=== PATIENT | female | born 1955 | race Caucasian/White ===

== ENCOUNTER → 2017-07-14 11:04 | Outpatient (CLI) | payer MEDICARE, MEDICAID, SELFPAY ==
--- NOTE | 2017-07-14 11:09 | MRI_ITS ---
STUDY: MRI LUMBAR SPINE WITH AND WITHOUT CONTRAST REASON FOR EXAM: Female, 61 years old. Lumbar stenosis with neurogenic claudication. Low back pain and left leg pain. TECHNIQUE: Standardized fat and water weighted pulse sequences were obtained in the sagittal and axial planes. 10 ml of Gadavist contrast material was administered for the contrast portion of the examination. COMPARISON: 12/31/2005. FINDINGS: T9-T10: (Sagittal only). Normal endplates. Normal disc height, hydration and morphology. Normal central canal and bilateral intervertebral neural foramina. T10-T11: (Sagittal only). Normal endplates. Minimal loss of disc hydration but normal disc height and morphology. Normal central canal and bilateral intervertebral neural foramina. T11-T12: (Sagittal only). Normal endplates. Normal disc height, hydration and morphology. Normal central canal and bilateral intervertebral neural foramina. T12-L1: (Sagittal only). Normal endplates. Normal disc height, hydration and morphology. Normal central canal and bilateral intervertebral neural foramina. Normal lumbar lordosis. There is no substantial scoliosis. Normal conus medullaris that terminates at the T12-L1 disc level. L1-2: Anterior marginal spurs. Irregularities of the L1 inferior endplate is secondary to intervertebral osteochondrosis. Mild disc space height narrowing. Moderate loss of disc hydration. Modic type II degenerative vertebral marrow fatty changes underneath the L1 inferior endplate. Normal L2 superior endplate. Small posterior bulging disc. Normal central canal and bilateral lateral recesses. Mild asymmetric degenerative facet arthropathy. Normal bilateral intervertebral neural foramina. L2-3: Pronounced disc space height narrowing. Modic type II degenerative vertebral marrow fatty changes underneath the adjacent vertebral endplates. New severe central canal stenosis secondary to posterior marginal spurs and dorsal epidural lipomatosis. The AP canal diameter is 5 mm. Moderate bilateral degenerative facet hypertrophy. Moderate stenosis of the bilateral intervertebral neural foramina. L3-4: Normal endplates. Normal disc height but marked loss of disc hydration. Normal disc morphology. Normal central canal. Pronounced left degenerative facet hypertrophy. Moderately pronounced right degenerative facet hypertrophy. Mild stenosis of the left intervertebral neural foramen. Normal right intervertebral neural foramen. L4-5: Normal endplates. Mild disc space height narrowing with moderate loss of disc hydration. Postsurgical absence of the spinous process and lamina. Normal central canal and bilateral intervertebral neural foramina. Pronounced left degenerative facet hypertrophy. Moderate right degenerative facet arthropathy. Normal bilateral intervertebral neural foramina. L5-S1: Grade 2 anterolisthesis of L5 on S1 but there is ankylosis of the L5 and S1 vertebral bodies. There is also a metallic screw entering the L5 vertebral body and penetrating the S1 vertebral body used for anterior fusion. Normal central canal. Moderate stenosis of both intervertebral neural foramina. Normal visualized sacral ala. Normal visualized paraspinous soft tissue structures. No abnormal enhancing lesions intradurally and extradurally. MRI/Spine Lumbar W/WO Contrast IMPRESSION: 1. Pronounced L2-L3 disc space height narrowing with intervertebral osteochondrosis of the L1 inferior endplate, new pronounced central canal stenosis at L2-L3 disc level secondary to posterior marginal spurs and dorsal epidural lipomatosis and moderate stenosis of both intervertebral neural foramina. These are new findings when compared to 12/31/2005. 2. Pronounced left L3-L4 degenerative facet arthropathy and mild stenosis of the left intervertebral neural foramen. 3. Pronounced left L4-L5 degenerative facet arthropathy and moderate right L4-L5 degenerative facet arthropathy. 4. Grade 2 anterolisthesis of L5 on S1. There is ankylosis of the L5-S1 vertebral bodies and a metallic screw penetrating the L5-S1 vertebral bodies used for fusion. There are, however, moderate stenosis of both L5-S1 intervertebral neural foramina. They are unchanged. 5. No MRI evidence of lumbar extruded disc fragment. Electronically Signed: Marcos Abraham MD at 13:02 EST , Service support ,
== END ==
PROVIDERS: Family Provider Preventive Medicine Occupational Medicine; PCP Preventive Medicine Occupational Medicine; Visit Provider Nurse Practitioner Acute Care
DX: M48.062 Spinal stenosis, lumbar region with neurogenic claudication (principal)
CPT/HCPCS: 72158; A9585

== ENCOUNTER 2017-08-07 18:33 | Emergency (ER) | payer MEDICARE, MEDICAID, SELFPAY ==
[2017-08-07 18:33] VITALS: BP 138/61; PULSE 101; RESP 20; TEMP 36.4; O2SAT 92; BMI 40.5
--- NOTE | 2017-08-07 19:07 | EKG12_ITS ---
Test Reason : Blood Pressure : / mmHG Vent. Rate : 079 BPM Atrial Rate : 079 BPM P-R Int : 170 ms QRS Dur : 090 ms QT Int : 394 ms P-R-T Axes : 041 049 041 degrees QTc Int : 451 ms Normal sinus rhythm Normal ECG Confirmed by SHANNAN BENITEZ ([id number]), news editor XI SHER ([id number]) on 08/12/2017 1:41:29 PM Referred By: MARK Confirmed By:SHANNAN BENITEZ
[2017-08-07 19:10] LABS: Bedside Glucose 339 mg/dL (70-110)
--- NOTE | 2017-08-07 19:10 | RAD_ITS ---
STUDY: X-RAY CHEST REASON FOR EXAM: Female, 61 years old. Dizziness and nausea. TECHNIQUE: 2 views COMPARISON: Prior chest radiograph of August 24, 2015. FINDINGS: The lungs are clear and expanded. There is no demonstrated pleural abnormality. Normal size heart. Normal mediastinum and arianna. Normal visualized pulmonary arteries. There is atherosclerotic calcification of the aortic arch with tortuosity. There are diffuse degenerative changes of the visualized thoracic spine. Normal visualized ribs, clavicles, and shoulders. There is no demonstrated abnormality of the visualized soft tissue structures of the upper abdomen. RAD/Chest PA and Lateral IMPRESSION: No acute cardiopulmonary findings or changes. Electronically Signed: Deirdre English MD at 19:55 EST , Service support ,
[2017-08-07] MEDS: 0.9% Normal Saline 1,000 ML 1000 ML IV (19:26)
[2017-08-07 19:42] LABS: Bacteria 0 SEEN /hpf (None Seen); Mucous, Urine 0 SEEN /hpf (<or=2+)
[2017-08-07 20:04] LABS: Color, Urine Yellow (Yellow); Glucose, Dipstick 250 mg/dl (Normal); Ketone-Dipstick Negative (Negative); Leukocyte Esterase-Dipstick Negative /ul (Negative); Nitrite-Dipstick Negative (Negative); Occult Blood-Urine Negative /ul (Negative); Protein-Dipstick Negative (Negative); Urine Bilirubin Dipstick Negative (Negative); Urine Clarity Clear (Clear); Urine Urobilinogen Normal (Normal)
[2017-08-07 20:16] LABS: Absolute Lymphocyte Count 3.37 X10^3/ul (0.83-4.51); Anion Gap 8 (5-15); BUN 13 mg/dL (7-18); Basophil# 0.02 X10^3/uL; Basophil% 0.2 % (0-1); Calcium,Total 8.8 mg/dL (8.5-10.1); Chloride 101 mmol/L (98-107); Creatinine, Serum 0.68 mg/dL (0.55-1.02); EST Glomerular Filtration Rate 92 mL/min (>60); Eosinophil# 0.16 X10^3/uL; Est Glom Filt Rate - Afr Amer 112 mL/min (>60); Estimated Creatinine Clearance 74.07 ml/min; Glucose 312 mg/dL (74-106); Hematocrit 39.5 % (37-47); Lymphocyte # 3.37 X10^3/ul (4.0); Lymphocyte % 41.5 % (19-41); Mean Corp Hgb Conc 32.9 g/gl (32-36); Mean Corpuscular Hgb 32.3 pg (27.0-32.0); Mean Corpuscular Volume 98.3 fL (81-99); Mean Platelet Vol. 10.3 fl (6.2-12.0); Monocyte# 0.58 X10^3/uL; Monocyte% 7.1 % (0-10); Neutrophil # 3.98 X10^3/uL (2.7-7.7); Neutrophil % 49.1 % (47-70); Platelet Count 218 K/mm3 (150-450); Potassium 3.5 mmol/L (3.5-5.1); RBC Distribution Width CV 12.6 % (11.6-14.6); RBC Distribution Width SD 45.3 fl (35.1-43.9); Red Blood Count 4.02 M/mm3 (4.2-5.4); Sodium Level 138 mmol/L (136-145); White Blood Count 8.1 K/mm3 (4.4-11.0)
[2017-08-07 20:18] LABS: POSITIVE COUNT NO; POSITIVE DIFFERENTIAL NO; POSITIVE MORPHOLOGY NO
[2017-08-07 20:25] LABS: Red Blood Cells-Urine 0-5 SEEN /hpf (0-5); White Blood Cells 0-5 SEEN /hpf (0-5)
[2017-08-07 20:26] LABS: Squamous Epithelial Cells - UA 0-5 SEEN /hpf (5-10)
[2017-08-07 20:38] LABS: Hemoglobin A1c 7.7 % (4.2-6.3)
[2017-08-07 20:41] LABS: Bedside Glucose 212 mg/dL (70-110)
--- NOTE | 2017-08-07 20:47 | ED.VISSUMM ---
- ER Visit Summary Date of Service: 08/07/17 Chief Complaint: High blood sugar History of Present Illness: The patient is a [address] Maldonado. She reports that she had dietary indiscretions today and is measured her blood sugar and is high despite taking her normal doses of Metformin and 2 extra doses of glyburide. She states that she ate 2 donuts and carrot cake. She measured her blood sugar and it was over 400. She came to the emergency department for evaluation. Physical Examination: Vitals: Stable. Afebrile. General: Well-nourished and well-developed. Head: Normocephalic atraumatic. Neck: Supple, no lymphadenopathy. No JVD. Nontender. Cardiovascular: Regular rate and rhythm. No murmurs. Respiratory: No respiratory distress. Clear to auscultation bilaterally. Abdominal: Soft, nontender, nondistended, normal bowel sounds. No guarding, rebound, or peritoneal signs. Back: Nontender. Extremities: Nontender, no edema. Skin: Normal color, no rash. Neurologic: Alert and oriented ?3. Cranial nerves II through XII are intact. Normal strength and sensation. Psych: Normal affect. Test Results: CBC is unremarkable. Chem-7 is remarkable for a glucose of 312. Troponin is negative. Urinalysis is negative. Chest x-ray shows no acute disease. Troponin is negative. EKG shows no acute changes. Hemoglobin A1c is 7.7. Abnormal Lab Results 08/07/17 08/07/17 08/07/17 18:52 19:20 19:20 WBC 8.1 RBC 4.02 L Hgb 13.0 Hct 39.5 MCV 98.3 MCH 32.3 H MCHC 32.9 RDW 12.6 RDW Differential 45.3 H Plt Count 218 MPV 10.3 Immature Gran % (Auto) 0.100 Neut % (Auto) 49.1 Lymph % (Auto) 41.5 H [place] % (Auto) 7.1 Eos % (Auto) 2.0 Baso % (Auto) 0.2 Absolute Neuts (auto) 4.0 Absolute Lymphs (auto) 3.37 Total Counted Not Reportable Sodium 138 Potassium 3.5 Chloride 101 Carbon Dioxide 29.0 Anion Gap 8 BUN 13 Creatinine 0.68 Estim Creat Clear Calc 74.07 Est GFR (MDRD) Af Amer 112 Est GFR (MDRD) Non-Af 92 BUN/Creatinine Ratio 19.0 Glucose 312 H Hemoglobin A1c Calcium 8.8 Troponin I < 0.02 Urine Color Urine Clarity Urine pH Ur Specific [place] Urine Protein Urine Glucose (UA) Urine Ketones Urine Occult Blood Urine Nitrite Urine Bilirubin Urine Urobilinogen Ur Leukocyte Esterase Urine RBC Urine WBC Ur Squamous Epith Cells Urine Bacteria Urine Mucus POC Glucose 339 H 08/07/17 08/07/17 08/07/17 19:20 19:30 20:32 WBC RBC Hgb Hct MCV MCH MCHC RDW RDW Differential Plt Count MPV Immature Gran % (Auto) Neut % (Auto) Lymph % (Auto) [place] % (Auto) Eos % (Auto) Baso % (Auto) Absolute Neuts (auto) Absolute Lymphs (auto) Total Counted Sodium Potassium Chloride Carbon Dioxide Anion Gap BUN Creatinine Estim Creat Clear Calc Est GFR (MDRD) Af Amer Est GFR (MDRD) Non-Af BUN/Creatinine Ratio Glucose Hemoglobin A1c 7.7 H Calcium Troponin I Urine Color Yellow Urine Clarity Clear Urine pH 6.0 Ur Specific [place] 1.010 Urine Protein Negative Urine Glucose (UA) 250 H Urine Ketones Negative Urine Occult Blood Negative Urine Nitrite Negative Urine Bilirubin Negative Urine Urobilinogen Normal Ur Leukocyte Esterase Negative Urine RBC 0-5 SEEN Urine WBC 0-5 SEEN Ur Squamous Epith Cells 0-5 SEEN Urine Bacteria 0 SEEN Urine Mucus 0 SEEN POC Glucose 212 H Emergency Department Course and Treatment: Patient rested comfortably in the emergency department. Her blood glucose had decreased to 212 without any further medications. Treatment Plan: She will be discharged with instructions to follow-up with her primary care physician in 1-2 days if not improving. Disposition: To home in improved and stable condition. Impression: 1. Hyperglycemia. 2. Type 2 diabetes mellitus. This note was generated with [employer] software. It may contain incorrect words, spelling, and punctuation that were not noted in review of the chart prior to signing ED Disposition - Plan for ED Patient: Disposition: Home or Assisted Living Chief Complaint: Hyperglycemia Instructions: ED Hyperglycemia Diabetic Referrals: Terrence Lew DO [Primary Care Provider] - 1-2 Days if not improving
[2017-08-07 21:00] VITALS: BP 161/76; PULSE 79; RESP 20; O2SAT 97
== END 2017-08-07 21:01 | disposition home or self-care (01) ==
PROVIDERS: Emergency Provider Emergency Medicine; Family Provider Preventive Medicine Occupational Medicine; PCP Preventive Medicine Occupational Medicine
DX: E11.65 Type 2 diabetes mellitus with hyperglycemia (principal); R05 Cough; J44.9 Chronic obstructive pulmonary disease, unspecified; F17.200 Nicotine dependence, unspecified, uncomplicated; Z79.82 Long term (current) use of aspirin; Z79.84 Long term (current) use of oral hypoglycemic drugs; Z79.899 Other long term (current) drug therapy
CPT/HCPCS: 71046; 80048; 81001; 82962; 83036; 84484; 85025; 93005; 96360; 96361; 99284; J7030; A4216

== ENCOUNTER 2018-03-04 09:00 | Outpatient (RCR) | payer MEDICARE, MEDICAID, SELFPAY ==
--- NOTE | 2017-12-31 12:32 | HP.PTEVAL ---
Patient's Visit Information LUISA CARTER is a 62 year old F referred to Physical Therapy by Haydee Polanco, with a diagnosis of S/P LUMBAR FUSION. Date of Evaluation: 12/31/17 Physical Therapist: Clovis Kim, PT, - Visit Plan Frequency: 2x /Week Duration: 4 Weeks Plan: NO ACTIVE ROM X 3WEEKS,WEAN BRACE MAICO AND FWW,. GRADE PROGRESSION OF DLS,LE STRENGTHENING,POSTURAL EX'S ,FLEXABLITY LE - Subjective Subjective: This 62 y/o female presents to physical therapy with s/p lumbar fusion with microdecompression L2-4 fusion L2-4 on November done by [facility] Watts at [facility] .Patient d/c 5days later due to drainage.Patient with BLT ,fww and lumbar brace. 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 Prior to surgery patient radiculopathy legs with weaknes in legs. Patient had MRI prior to surgery see result for details. Currently c/o weakness in left leg burning/parathesaia leg. Bowel/bladder -. Symptoms affect sleeping. Patient uses walker community distances ,brace on except when resting. Coughing/sneezing -.Patient symptoms affect ADL'S and dailiy function and QOL.Patient seen Dr x-rays looked good recommended PT. SOCAIL: partener. HOME SITUTATION: 4 steps entrance with rail. VOCATION:disablity - Pain Bilateral Back Pain Intensity (Out of 10): 0 Pain Intensity Range: 10 Left Lower Extremity Pain Intensity (Out of 10): 4 Pain Intensity Range: 10 - Objective POSTURE: mild foward posture. GAIT: ambulate to PT with fww,amulated without reciprocal pattern slight decrease stance time. NEURO: c/o parathesia/tingling,light touch inact ,reflexes L3-4,L4-5,L5-S1 1/3. SYMMTRIES: align. SKIN: inscion well approximate. BALANCE: good -. FLEXABLITY: Hams min tight. MMT: quads/hams 4-/5,hip flexion 4-/5,3/5 ,ankle 4/5. LUMBAR ROM: flexion min loss ,extension mod loss,side glides min loss - Special Tests L/S Left Straight Leg Raise: Negative L/S Right Straight Leg Raise: Negative - Goals Goal 1:: Independant with HEP Goal Time Frame: 4-6 Weeks Goal 2:: Independant with posture for ADL'S Goal Time Frame: 4-6 Weeks Goal 3:: Ambulate with normal neri community distance with good balance no device. Goal Time Frame: 4-6 Weeks Goal 4:: Patient increase strength of left hip flexion 3+/5 ,quads/hams 4/5 to improve function with ADL'S Goal Time Frame: 4-6 Weeks Goal 5:: Patient return to prior level of function with min limitations Goal Time Frame: 4-6 Weeks Goal 6:: Patient improve owerty by 5 points to impoe QOL. Goal Time Frame: 4-6 Weeks - Rehabilitation Potential Physical Therapy Diagnosis: This 62 y/o presents with s/p lumbar fusion with microdecompression and fusion L2-4 December 03 with decrease strength left LEG ,impaired gait,endurance and function thus benifit from skilled PT Rehabilitation Potential: Good - Anticipated Interventions Patient/Client Instruction: Educate patient on: Condition, Plan of Care For the Purpose of:: To decrease pain, To increase ROM, To improve nutrient delivery to tissue, To improve muscle performance and motor function, To increase tolerance to activity/condition/position, To improve ability of physical actions for home/community/work/leisure, To improve gait and locomotor functions, To decrease soft tissue restriction, To increase flexibility/ROM, To improve endurance, To assume or resume ADL's, To improve ability to perform tasks related to life management Therapeutic Exercise to Include: Strength training, Body mechanics, Postural training, Flexibilty training, Dynamic Lumbar Stabilization For the Purpose of:: To increase ROM, To improve muscle performance and motor function, To improve ability to perform ADL's, To increase tolerance to activity/condition/position, To improve performance and independence with ADL's, To improve ability of physical actions for home/community/work/leisure, To improve health of tissue, To decrease soft tissue restriction, To increase flexibility/ROM, To assume or resume ADL's, To improve ability to perform tasks related to life management IF ES: Yes Cryotherapy (ice pack, ice massage): Yes Thermo therapy (hot pack): Yes For the Purpose of:: To decrease pain, To improve nutrient delivery to tissue, To increase oxygenation perfusion, To improve health of tissue, To decrease soft tissue restriction Thank you for the opportunity to evaluate your patient. For Medicare and Medicare HMO plans, please review the plan of care and approve it. It will need to be FAXED BACK to us at [phone] for Medicare purposes. Please let me know if there are questions or concerns regarding this plan of care. Physician Signature: Date:
--- NOTE | 2018-01-22 10:37 | HP.PTREVAL_ITS ---
Haydee Polanco, , It has been my pleasure to treat LUISA CARTER over the last 8 visits for S/ P LUMBAR FUSION. Please see the progress note below for an update on the physical therapy plan of care! Subjective: Doing better. Conts to have pain knee /ankle pain at night burning pain. During day up walking symptoms nt prevelant. Leg getting stronger ,but basement steps difficulty leading with left leg. Objective/Function: POSTURE: mild foward posture. GAIT: ambulates with cane community distances. but ambaulates with no cane reciprocal pattern. NEURO: c/ o parathesia left knee ,reflexes intact. STRENGTH : quads/hams 4/5,hip flexion left 3+/5,ankle 4/5. FLEXABLITY: hams min loss Plan Plan: cont with current POC interventions 2xweek for 4weeks Goals Goal 1:: Independant with HEP Goal Time Frame: 4-6 Weeks Goal Progress: Progressing Goal 2:: Independant with posture for ADL'S Goal Time Frame: 4-6 Weeks Goal Progress: Progressing Goal 3:: Ambulate with normal neri community distance with good balance no device. Goal Time Frame: 4-6 Weeks Goal Progress: Progressing Goal 4:: Patient increase strength of left hip flexion 3+/5 ,quads/hams 4/5 to improve function with ADL'S Goal Time Frame: 4-6 Weeks Goal Progress: Progressing Goal 5:: Patient return to prior level of function with min limitations Goal Time Frame: 4-6 Weeks Goal Progress: Progressing Goal 6:: Patient improve owerty by 5 points to impoe QOL. Goal Time Frame: 4-6 Weeks Goal Progress: Progressing Anticipated Interventions Patient/Client Instruction: Educate patient on: Condition, Plan of Care For the Purpose of:: To decrease pain, To increase ROM, To improve nutrient delivery to tissue, To improve muscle performance and motor function, To increase tolerance to activity/condition/position, To improve ability of physical actions for home/community/work/leisure, To improve gait and locomotor functions, To decrease soft tissue restriction, To increase flexibility/ROM, To improve endurance, To assume or resume ADL's, To improve ability to perform tasks related to life management Therapeutic Exercise to Include: Strength training, Body mechanics, Postural training, Flexibilty training, Dynamic Lumbar Stabilization For the Purpose of:: To increase ROM, To improve muscle performance and motor function, To improve ability to perform ADL's, To increase tolerance to activity /condition/position, To improve performance and independence with ADL's, To improve ability of physical actions for home/community/work/leisure, To improve health of tissue, To decrease soft tissue restriction, To increase flexibility/ ROM, To assume or resume ADL's, To improve ability to perform tasks related to life management IF ES: Yes Cryotherapy (ice pack, ice massage): Yes Thermo therapy (hot pack): Yes For the Purpose of:: To decrease pain, To improve nutrient delivery to tissue, To increase oxygenation perfusion, To improve health of tissue, To decrease soft tissue restriction Please do not hesitate to contact me at [phone] by phone or Fax: if you have questions or concerns regarding this new plan of care! Sincerely, Clovis Kim, PT,
--- NOTE | 2018-03-04 09:57 | HP.PTDCSUM_ITS ---
HP - PT D/C Summary It has been my pleasure to treat LUISA CARTER under orders from Haydee Polanco, , for the diagnosis of S/P LUMBAR FUSION for a total of 17 visit(s). Discharge Date: 03/04/18 Please see the following information for a summary of their discharge status. - Subjective Subjective: pleased with progress ..doing well. Patient hs nio restriction. Patient happy with progess no pain - Pain Bilateral Back Pain Intensity (Out of 10): 0 Left Lower Extremity Pain Intensity (Out of 10): 0 - Overall Improvement % Improvement: 90 - Objective Objective/Function: POSTURE: mild foward posture. GAIT: normal neri. NEURO : denies parathesia/tingling. MMT: quads/hams/hip flexion 4/5,ankle 4/5. LUMBAR ROM: flexion min loss,extension min loss ,extension min loss ,side glides min - Goals Goal 1:: Independant with HEP Goal Progress: Goal Met Goal 2:: Independant with posture for ADL'S Goal Progress: Goal Met Goal 3:: Ambulate with normal neri community distance with good balance no device. Goal Progress: Goal Met Goal 4:: Patient increase strength of left hip flexion 3+/5 ,quads/hams 4/5 to improve function with ADL'S Goal Progress: Goal Met Goal 5:: Patient return to prior level of function with min limitations Goal Progress: Progressing Goal 6:: Patient improve owerty by 5 points to impoe QOL. Goal Progress: Goal Met - Plan Plan: D/C to [facility] - D/C Information Discharge Comments: [facility] If there are questions or concerns regarding this patient's physical therapy, please feel free to call me at [phone]. Thank you for the referral of this patient. Sincerely, Clovis Kim, PT,
== END 2018-03-04 17:20 | disposition home or self-care (01) ==
LOC: PT 09:00
PROVIDERS: Family Provider Preventive Medicine Occupational Medicine; PCP Preventive Medicine Occupational Medicine; Visit Provider Nurse Practitioner Acute Care
DX: Z98.1 Arthrodesis status (principal)
CPT/HCPCS: 97110; 97162; 97530

== ENCOUNTER → 2018-04-23 19:45 | Outpatient (CLI) | payer MEDICARE, MEDICAID, SELFPAY ==
[2018-04-23 19:47] LABS: Bacteria 0 SEEN /hpf (None Seen); Mucous, Urine 0 SEEN /hpf (<or=2+); Red Blood Cells-Urine 0 SEEN /hpf (0-5)
[2018-04-23 20:26] LABS: Glucose, Dipstick Normal (Normal); Ketone-Dipstick Negative (Negative); Leukocyte Esterase-Dipstick 100 /ul (Negative); Nitrite-Dipstick Negative (Negative); Occult Blood-Urine Negative /ul (Negative); Protein-Dipstick 30 mg/dl (Negative); Urine Bilirubin Dipstick Negative (Negative); Urine Urobilinogen Normal (Normal)
[2018-04-23 20:40] LABS: Color, Urine Yellow (Yellow); Urine Clarity Clear (Clear)
[2018-04-23 20:41] LABS: Hyaline Cast 5-10 SEEN /lpf (0-5); Squamous Epithelial Cells - UA 0-5 SEEN /hpf (5-10); White Blood Cells 0-5 SEEN /hpf (0-5)
== END ==
PROVIDERS: Family Provider Preventive Medicine Occupational Medicine; PCP Preventive Medicine Occupational Medicine; Referring Provider Nurse Practitioner Adult Health; Visit Provider Nurse Practitioner Adult Health
DX: R82.998 Other abnormal findings in urine (principal)
CPT/HCPCS: 81001; 87086

== ENCOUNTER → 2018-04-27 11:16 | Outpatient (CLI) | payer MEDICARE, MEDICAID, SELFPAY ==
--- NOTE | 2018-04-27 11:20 | US_ITS ---
STUDY: RENAL ULTRASOUND - COMPLETE REASON FOR EXAM: Female, 62 years old. Hematuria, urinary retention TECHNIQUE: Ultrasound evaluation of the kidneys was performed with real-time and static zelaya-scale imaging. COMPARISON: None. FINDINGS: RIGHT KIDNEY: Normal location of the right kidney, which is normal in size. The right kidney measures 9.9 x 5.1 x 4.9 cm. There is a normal cortex of the right kidney. The renal cortex measures 1.4 cm. There is no right renal mass or cyst. There are no right renal calculi. There is no right hydronephrosis. DISTAL RIGHT URETER: There is non-visualization of the distal right ureter. There is no demonstrated right ureterovesical junction calculus. There is a visualized right ureteral jet. LEFT KIDNEY: Normal location of the left kidney, which is normal in size. The left kidney measures 10.8 x 5.2 x 5.4 cm. There is a normal cortex of the left kidney. The renal cortex measures 1.5 cm. There is no left renal mass or cyst. There are no left renal calculi. There is no left hydronephrosis. DISTAL LEFT URETER: There is non-visualization of the distal left ureter. There is no demonstrated left ureterovesical junction calculus. There is no demonstrated left ureteral jet. BLADDER: The distended urinary bladder has a volume of 212 ml. The empty urinary bladder has a volume of 0 ml. There is a normal wall thickness of the distended urinary bladder. There is no demonstrated mass within the urinary bladder. There are no demonstrated bladder calculi. US/Kidney and Bladder IMPRESSION: Normal ultrasound of the kidneys and urinary bladder. The left ureter jet is not visualized at the time of this study . Electronically Signed: Thea rBeen MD at 19:51 EST Tel , Service support ,
== END ==
PROVIDERS: Family Provider Preventive Medicine Occupational Medicine; PCP Preventive Medicine Occupational Medicine; Referring Provider Nurse Practitioner Adult Health; Visit Provider Nurse Practitioner Adult Health
DX: R33.9 Retention of urine, unspecified (principal); R31.29 Other microscopic hematuria
CPT/HCPCS: 76770

== ENCOUNTER → 2021-11-15 | Outpatient (CLI) | payer MEDICARE, MEDICAID, SELFPAY ==
[2021-11-15 12:24] LABS: Absolute Lymphocyte Count 1.84 X10^3/uL (0.83-4.51); Absolute Neutrophil Count 4.4 X10^3/uL (2.0-7.7); Basophil# 0.03 X10^3/uL; Basophil% 0.4 % (0-1); Eosinophil# 0.16 X10^3/uL; Eosinophils% 2.3 % (0-5); Hematocrit 39.8 % (37-47); Hemoglobin 13.4 g/dL (12.0-15.0); Lymphocyte # 1.84 X10^3/ul (0.83-4.51); Lymphocyte % 26.3 % (19-41); Mean Corp Hgb Conc 33.7 g/dL (32-36); Mean Corpuscular Hgb 35.3 pg (27.0-32.0); Mean Corpuscular Volume 104.7 fL (81-99); Mean Platelet Vol. 11.1 fl (6.2-12.0); Monocyte# 0.52 X10^3/uL; Monocyte% 7.4 % (0-10); NRBC Flagged by Analyzer 0 % (0-5); Neutrophil # 4.44 X10^3/uL (2.7-7.7); Neutrophil % 63.5 % (47-70); Platelet Count 104 K/mm3 (150-450); RBC Distribution Width CV 12.8 % (11.6-14.6); RBC Distribution Width SD 49.4 fl (35.1-43.9)
[2021-11-15 13:52] LABS: Hepatitis B Surface Antibody Non-Reactive; Hepatitis B Surface Antigen Non-Reactive (Nonreactive); Hepatitis C Antibody Non-Reactive (Nonreactive)
[2021-11-15 14:13] LABS: AST(SGOT) 58 U/L (15-37); Alanine Aminotransfer ALT/SGPT 48 U/L (13-56); Albumin, Serum 2.7 g/dL (3.2-5.0); Alkaline Phosphatase 161 U/L (45-117); Anion Gap 7 (5-15); BUN 14 mg/dL (7-18); BUN/Creat Ratio 22.2 RATIO (10-20); Bilirubin, Direct 0.53 mg/dL (0.00-0.30); Chloride 104 mmol/L (98-107); Creatinine, Serum 0.63 mg/dL (0.55-1.02); EST Glomerular Filtration Rate 100 mL/min (>60); Est Glom Filt Rate - Afr Amer 121 mL/min (>60); Globulin 4.6 g/dL (2.2-4.2); Glucose 140 mg/dL (74-106); Potassium 2.7 mmol/L (3.5-5.1); Protein, Total 7.3 g/dL (6.4-8.2); Sodium Level 138 mmol/L (136-145)
[2021-11-17 15:08] LABS: QNTFERON TB Mitogen Value 5.81 IU/mL (.); QNTFERON TB Nil Value 0.06 IU/mL (.); QNTFERON TB1+ Ag Value 0.03 IU/mL (.); QNTFERON TB2+ Ag Value 0.05 IU/mL (.)
[2021-11-18 08:37] LABS: Hepatitis B Core Ab Total Negative (Negative); QNTIFERON TB Positive Criteria Negative (Negative)
== END | disposition home or self-care (01) ==
PROVIDERS: PCP Preventive Medicine Occupational Medicine; Referring Provider Dermatology Pediatric Dermatology; Visit Provider Dermatology Pediatric Dermatology
DX: L40.0 Psoriasis vulgaris (principal); L40.59 Other psoriatic arthropathy; Z79.899 Other long term (current) drug therapy; L57.0 Actinic keratosis
CPT/HCPCS: 36415; 80048; 80076; 85025; 86480; 86704; 86706; 86803; 87340

== ENCOUNTER → 2022-01-25 | Outpatient (CLI) | payer MEDICARE, MEDICAID, SELFPAY ==
--- NOTE | 2022-01-25 07:27 | US_ITS ---
STUDY: ABDOMINAL ULTRASOUND - RIGHT UPPER QUADRANT REASON FOR VISIT: Female, 66 years old ELEVATED LIVER ENZYMES TECHNIQUE: Ultrasound evaluation of the right upper quadrant was performed with real-time and static seo-scale imaging. TECHNICAL QUALITY: Adequate. COMPARISON: None. FINDINGS: Liver: The liver measures 15.1 cm. There is increased echogenicity consistent with fatty infiltration. The bile ducts are within normal limits. There is hepatic color flow. The direction of portal flow is hepatopetal. There is no demonstrated mass lesion. Gallbladder: Normal distended gallbladder. The gallbladder wall measures 2.7 mm. There is a negative sonographic Gonzales''s sign. There is no pericholecystic fluid. There are no gallstones. Common Bile Duct (C.B.D.): The common bile duct measures 6.2 mm. Pancreas: Normal size of the head, body and tail of the pancreas. There is normal echogenicity of the pancreas. There is no demonstrated pancreatic mass or cyst. Right Kidney: Normal size of the right kidney. The right kidney measures 9.7 cm x 6.3 cm x 4.2 cm. Normal renal cortex. The right cortex measures 1.5 cm. There is no demonstrated renal mass or cyst. There is no right hydronephrosis. US/Abdomen Limited IMPRESSION: Fatty infiltration of the liver. Electronically Signed: Luiz Díaz MD at 8:41 EDT ,
--- NOTE | 2022-01-25 08:30 | US_ITS ---
STUDY: ABDOMINAL ULTRASOUND - ELASTOGRAPHY REASON FOR VISIT: Female, 66 years old. Elevated liver enzymes. TECHNIQUE: Liver stiffness measurements were obtained on a [employer] RS 85 ultrasound machine using a CA 1-7 probe following the SRU guidelines. 3 measurements were obtained using a 2-D-SWE method. The IQR/M was 22% suggesting a quality data set. TECHNICAL QUALITY: Adequate. COMPARISON: Comparison is made with prior study done earlier today. FINDINGS: Liver: Fatty infiltration of the liver. Median liver stiffness measured 17.5 kPa. US/Elastography Parenchyma/Organ IMPRESSION: Liver stiffness measures 17.5 kPa compatible with F3-F4 (Moderate to severe liver fibrosis) Metavir score. Electronically Signed: Luiz Díaz MD at 8:54 EDT ,
== END | disposition home or self-care (01) ==
PROVIDERS: PCP Preventive Medicine Occupational Medicine; Referring Provider Preventive Medicine Occupational Medicine; Visit Provider Preventive Medicine Occupational Medicine
DX: R93.2 Abnormal findings on diagnostic imaging of liver and biliary tract (principal)
CPT/HCPCS: 76705; 76981

== ENCOUNTER → 2022-11-20 | Outpatient (CLI) | payer MEDICARE, MEDICAID, SELFPAY ==
[2022-11-20 12:57] LABS: Hematocrit 42.3 % (37-47); Hemoglobin 14.6 g/dL (12.0-15.0); Mean Corp Hgb Conc 34.5 g/dL (32-36); Mean Corpuscular Hgb 36.4 pg (27.0-32.0); Mean Corpuscular Volume 105.5 fL (81-99); Mean Platelet Vol. 12.6 fl (6.2-12.0); POSITIVE COUNT YES; Platelet Count 87 K/mm3 (150-450); RBC Distribution Width CV 12.8 % (11.6-14.6); RBC Distribution Width SD 49.9 fl (35.1-43.9); Red Blood Count 4.01 M/mm3 (4.2-5.4); White Blood Count 5.7 K/mm3 (4.4-11.0)
[2022-11-20 13:08] LABS: International Normalized Ratio 1.1; Prothrombin Time (Protime)PT. 14.4 SECONDS (11.7-14.9)
[2022-11-20 13:09] LABS: Partial Thromboplast Time 37.6 Seconds (24.1-36.2)
[2022-11-21 05:07] LABS: AFP, Tumor Marker 3.7 ng/mL (0.0-9.2)
== END | disposition home or self-care (01) ==
LOC: MTLAB 10:32
PROVIDERS: PCP Preventive Medicine Occupational Medicine; Referring Provider Internal Medicine Gastroenterology; Visit Provider Internal Medicine Gastroenterology
DX: K74.60 Unspecified cirrhosis of liver (principal)
CPT/HCPCS: 36415; 82105; 85027; 85610; 85730

== ENCOUNTER → 2023-05-02 | Outpatient (CLI) | payer MEDICARE, SELFPAY ==
[2023-05-02 10:45] LABS: AST(SGOT) 43 U/L (15-37); Alanine Aminotransfer ALT/SGPT 55 U/L (13-56); Albumin, Serum 2.8 g/dL (3.2-5.0); Alkaline Phosphatase 129 U/L (45-117); Bilirubin, Direct 0.65 mg/dL (0.00-0.30); Globulin 4.2 g/dL (2.2-4.2)
[2023-05-02 14:17] LABS: International Normalized Ratio 1.2; Prothrombin Time (Protime)PT. 15.1 SECONDS (11.7-14.9)
[2023-05-03 04:07] LABS: AFP, Tumor Marker 3.7 ng/mL (0.0-9.2)
== END | disposition home or self-care (01) ==
LOC: MTLAB 07:57
PROVIDERS: PCP Preventive Medicine Occupational Medicine; Referring Provider Internal Medicine Gastroenterology; Visit Provider Internal Medicine Gastroenterology
DX: K74.60 Unspecified cirrhosis of liver (principal)
CPT/HCPCS: 36415; 80076; 82105; 85610

== ENCOUNTER → 2023-08-27 | Outpatient (CLI) | payer MEDICARE, SELFPAY ==
[2023-08-27 13:41] LABS: Hematocrit 42.9 % (37-47); Hemoglobin 14.6 g/dL (12.0-15.0); Mean Corpuscular Hgb 35.3 pg (27.0-32.0); Mean Corpuscular Volume 103.6 fL (81-99); Mean Platelet Vol. 11.2 fl (6.2-12.0); Platelet Count 107 K/mm3 (150-450); RBC Distribution Width CV 12.6 % (11.6-14.6); Red Blood Count 4.14 M/mm3 (4.2-5.4); White Blood Count 6.5 K/mm3 (4.4-11.0)
== END | disposition home or self-care (01) ==
LOC: LAB 12:22
PROVIDERS: PCP Preventive Medicine Occupational Medicine; Referring Provider Anesthesiology Pain Medicine; Visit Provider Anesthesiology Pain Medicine
DX: M54.12 Radiculopathy, cervical region (principal)
CPT/HCPCS: 36415; 85027

== ENCOUNTER → 2024-02-25 | Outpatient (CLI) | payer MEDICARE, SELFPAY ==
--- NOTE | 2024-02-25 08:12 | MRI_ITS ---
EXAM: MR LUMBAR SPINE WITHOUT AND WITH INTRAVENOUS CONTRAST CLINICAL INDICATION: pain TECHNIQUE: Multiplanar and multisequence MR images of the lumbar spine without and with intravenous contrast. CONTRAST: IV 17cc clariscan COMPARISON: Lumbar spine radiographs, 01/22/2024 and MRI lumbar spine, 07/05/2018. FINDINGS: VERTEBRAE: Fixed and fused grade 1 to grade 2 anterolisthesis of L5 upon S1 with fusion hardware is identified. Within the L2-L5 laminectomy interval, there is a lobulated simple appearing nonenhancing T2 hyperintense fluid collection measuring up to 3.8 cm which is likely a chronic seroma. No acute fracture. No suspicious marrow space signal abnormalities. Maintained lumbar lordosis. Mild endplate degenerative signal changes at multiple levels particularly the inferior endplate of L1. SPINAL CORD: No significant abnormality. Normal position and signal intensity of the conus medullaris. SOFT TISSUES: As above. Additionally, paraspinal muscular atrophy is present. No acute visceral findings. DISCS/SPINAL CANAL/NEURAL FORAMINA: L1-L2: Disc bulge and facet arthrosis. Mild spinal canal stenosis and at least moderate bilateral neural foraminal narrowing. L2-L3: Endplate osteophytes and postoperative change. No significant spinal canal or neural foraminal stenosis. L3-L4: Postoperative change. No significant spinal canal or neural foraminal stenosis. Status post L3-L4 and bilateral transpedicular fusion better demonstrated on comparison radiograph. Longitudinal connecting rods are present. This results in susceptibility artifact which obscures and distorts the adjacent tissues. L4-L5: Disc bulge with superimposed central disc herniation and bilateral facet arthrosis. No significant spinal canal stenosis. Mild bilateral neural foraminal narrowing. L5-S1: At least moderate bilateral neural foraminal narrowing. Patent spinal canal. MRI/Spine Lumbar W/WO Contrast IMPRESSION: 1. Fixed and fused grade 1 to grade 2 anterolisthesis of L5 upon S1 with fusion hardware is identified. 2. Within the L2-L5 laminectomy interval, there is a lobulated simple appearing nonenhancing T2 hyperintense fluid collection measuring up to 3.8 cm which is likely a chronic seroma. 3. Status post L3-L4 and bilateral transpedicular fusion better demonstrated on comparison radiograph. Longitudinal connecting rods are present. This results in susceptibility artifact which obscures and distorts the adjacent tissues. 4. Degenerative changes with multilevel spinal canal and neural foraminal stenosis as above. Interval operative change since prior MRI was improved patency of the spinal canal at L2-L3. Electronically Signed: Waqas Saha DO at 0:04 EDT ,
[2024-02-25 08:45] LABS: CREATININE FINGERSTICK < 1.0 mg/dL (0.55-1.02); EGFR FINGERSTICK > 60.0000 mL/min (>60)
== END | disposition home or self-care (01) ==
PROVIDERS: PCP Preventive Medicine Occupational Medicine; Referring Provider Orthopaedic Surgery Orthopaedic Surgery of the Spine; Visit Provider Orthopaedic Surgery Orthopaedic Surgery of the Spine
DX: M51.36 Other intervertebral disc degeneration, lumbar region (principal); Z98.1 Arthrodesis status
CPT/HCPCS: 72158; A9575

== ENCOUNTER → 2024-06-02 | Outpatient (CLI) | payer MEDICARE, SELFPAY ==
[2024-06-02 12:27] LABS: AST(SGOT) 46 U/L (15-37); Alanine Aminotransfer ALT/SGPT 56 U/L (13-56); Albumin, Serum 3.1 g/dL (3.2-5.0); Alkaline Phosphatase 144 U/L (45-117); Anion Gap 4 (5-15); Chloride 104 mmol/L (98-107); Globulin 3.9 g/dL (2.2-4.2); Potassium 5.1 mmol/L (3.5-5.1); Sodium Level 135 mmol/L (136-145)
== END | disposition home or self-care (01) ==
PROVIDERS: PCP Preventive Medicine Occupational Medicine; Referring Provider Internal Medicine Gastroenterology; Visit Provider Internal Medicine Gastroenterology
DX: K74.60 Unspecified cirrhosis of liver (principal)
CPT/HCPCS: 36415; 80051; 80076

== ENCOUNTER 2024-06-18 11:55 | Outpatient (RCR) | payer MEDICARE, MEDICAID, SELFPAY ==
--- NOTE | 2024-06-18 12:37 | HP.PTEVAL_ITS ---
Patient's Visit Information Visit Information Visit Information: LUISA CARTER is a 68 year old F referred to Physical Therapy by Dr. Tara Munoz MD with a diagnosis of LOW BACK PAIN. Date of Evaluation: 06/18/24 Physical Therapist: Clovis Kim, PT, Cert MDT, OCS Visit Plan Frequency: 2x /Week Duration: 4 Weeks Plan: PT INTERVENTIONS AQUATICS THERAPY DLS ABD/BACK ,LE FLEXABILITY ,LUMBAR R OM,POSTURAL EX'S ,AND BLE STRENGTHENING Subjective Subjective: This 68 y/o female presents to physical therapy for low back pain. Patient has back pain over 40 years ~ 1984 with lumbar fusion then had 2nd lumbar surgery 2018 . Patient pain worse most recently ,seen DR Manuel recommended PT and surgery is not recommended . Patient pain located symmetrical lumbar with radicular symptoms to foot. Patient has had last epidural injection April. Aggravating factors bending ,lifting ,carrying extended walking and standing .Patient had MRI fusion and laminectomy DDD. And x-rays showed Severe anterolisthesis of L5 over S1 appears to be stable on the flexion and extension views Alleviating rest ,and unable medication due to liver. Patient c/o denies paresthesia/tingling left lower leg. Bowel/bladder -. Patient sleeping okay at night. Patient has prior PT Patient symptoms worse housework tasks. Patient goals to decrease pain. SOCAIL: significant level VOCATION: retired Pain Bilateral Back: Pain Intensity (Out of 10): 5 Pain Intensity Range: 10 Objective Objective: POSTURE: mild forward posture GAIT: reciprocal pattern NEURO: c/o paresthesia/tingling left leg ,reflexes L3-4,L4-5,L5-S1 1/3 SYMMETRIES:algn LUMBAR ROM: flexion min loss ,extension severe ,side glides mod /severe loss MMT: quads/hams 4/5 ,( 9 peak force) hip flexion left 11.8 ,right 13.5 ,ankle 5/5 FLEXABLIY: hamstrings mod limited Special Tests L/S Slump test left side: Negative L/S Slump test right side: Negative L/S Left Straight Leg Raise: Negative L/S Right Straight Leg Raise: Negative Balance/Special Test Scores Oswestry Low Back Score: 26 Goals Goal 1:: Patient to be I with Aquatic therapy with back Goal Time Frame: 4-6 Weeks Goal 2:: Patient to improve lumbar ROM with function of recovery for ADL and housework tasks. Goal Time Frame: 4-6 Weeks Goal 3:: Patient to improve back oswestry score by 5 points to improve QOL Goal Time Frame: 4-6 Weeks Goal 4:: Patient to demonstrate 40% improvement with ADLS and less pain Goal Time Frame: 4-6 Weeks Goal 5:: Patient to improve hip strength by 5-10# to improve function and gait Goal Time Frame: 4-6 Weeks Rehabilitation Potential Physical Therapy Diagnosis: This patient has chronic back pain with 2 surgery with fusion 1985 and 2017 with weakness in hips ,decrease ROM lumbar pain with position and motion testing thus benefit from skilled PT with Aquatic therapy Rehabilitation Potential: Fair Anticipated Interventions Patient/Client Instruction: Educate patient on: Condition and Plan of Care For the Purpose of:: To decrease pain, To increase ROM, To improve muscle performance and motor function, To improve ability to perform ADL's, To increase tolerance to activity/condition/position, To improve ability of physical actions for home/community/work/leisure, To improve gait and locomotor functions, To improve health of tissue, To decrease soft tissue restriction, To improve endurance, To improve balance and To improve tolerance to ADL's Therapeutic Exercise to Include: Strength training, Balance training, Flexibilty training, In an aquatic setting and Dynamic Lumbar Stabilization For the Purpose of:: To decrease pain, To increase ROM, To improve muscle performance and motor function, To improve ability to perform ADL's, To increase tolerance to activity/condition/position, To improve ability of physical actions for home/community/work/leisure, To improve health of tissue, To decrease soft tissue restriction, To increase flexibility/ROM, To improve endurance, To improve balance, To reduce risk of recurrence and To improve tolerance to ADL's Text: Thank you for the opportunity to evaluate your patient. For Medicare and Medicare HMO plans, please review the plan of care and approve it. It will need to be FAXED BACK to us at [phone] for Medicare purposes. For Medicare only, by signing this I certify the plan of care. Please let me know if there are questions or concerns regarding this plan of care. Physician Signature: Date:
--- NOTE | 2024-10-21 14:58 | HP.PT.NRP ---
Patient Information Patient Information: LUISA CARTER was seen in my office for initial evaluation on 06/18/24. The following Plan of Care was established for this patient: POC Established Initial Frequency: 2x /Week Initial Duration: 4 Weeks Anticipated Interventions Patient/Client Instruction: Educate patient on: Condition and Plan of Care For the Purpose of:: To decrease pain, To increase ROM, To improve muscle performance and motor function, To improve ability to perform ADL's, To increase tolerance to activity/condition/position, To improve ability of physical actions for home/community/work/leisure, To improve gait and locomotor functions, To improve health of tissue, To decrease soft tissue restriction, To improve endurance, To improve balance and To improve tolerance to ADL's Therapeutic Exercise to Include: Strength training, Balance training, Flexibilty training, In an aquatic setting and Dynamic Lumbar Stabilization For the Purpose of:: To decrease pain, To increase ROM, To improve muscle performance and motor function, To improve ability to perform ADL's, To increase tolerance to activity/condition/position, To improve ability of physical actions for home/community/work/leisure, To improve health of tissue, To decrease soft tissue restriction, To increase flexibility/ROM, To improve endurance, To improve balance, To reduce risk of recurrence and To improve tolerance to ADL's Last Seen Last Seen: This patient was last seen in our office . Pertinent comments regarding their Physical therapy will appear below: Patient was seen for PT for Aquatics for LBP but did not return At this point I will be discontinuing this patient from physical therapy. I would be happy to see this patient again in the future if found appropriate by the physician. Thank you! Clovis Kim, PT, Cert MDT, OCS Balance/Gait/Functional tests Balance/Special Test Scores Oswestry Low Back Score: 26
== END 2024-06-18 19:00 | disposition home or self-care (01) ==
LOC: PT 11:55
PROVIDERS: PCP Preventive Medicine Occupational Medicine; Referring Provider Anesthesiology Pain Medicine; Visit Provider Anesthesiology Pain Medicine
DX: M54.50 Low back pain, unspecified (principal)
CPT/HCPCS: 97162

== ENCOUNTER 2024-06-29 15:53 | Emergency (ER) | payer MEDICARE, MEDICAID, SELFPAY ==
[2024-06-29] VITALS (7 sets, daily range): BP systolic 111–157; BP diastolic 56–85; PULSE 70–88; RESP 11–18; TEMP 36.2–36.8; O2SAT 95–99; BMI 32.5
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
[2024-06-29 18:28] LABS: Basophil# 0.05 X10^3/uL; Eosinophil# 0.13 X10^3/uL; Eosinophils% 2.7 % (0-5); Hematocrit 41.2 % (37-47); Hemoglobin 14.1 g/dL (12.0-15.0); Mean Corp Hgb Conc 34.2 g/dL (32-36); Mean Corpuscular Hgb 35.7 pg (27.0-32.0); Mean Corpuscular Volume 104.3 fL (81-99); Mean Platelet Vol. 10.9 fl (6.2-12.0); Monocyte# 0.58 X10^3/uL; Monocyte% 12.2 % (0-10); NRBC Flagged by Analyzer 0 % (0-5); Neutrophil % 62.9 % (47-70); POSITIVE COUNT YES; Platelet Count 74 K/mm3 (150-450); RBC Distribution Width CV 12.6 % (11.6-14.6); RBC Distribution Width SD 48.7 fl (35.1-43.9); Red Blood Count 3.95 M/mm3 (4.2-5.4); White Blood Count 4.8 K/mm3 (4.4-11.0)
[2024-06-29 18:38] LABS: AST(SGOT) 38 U/L (15-37); Alanine Aminotransfer ALT/SGPT 44 U/L (13-56); Alkaline Phosphatase 144 U/L (45-117); Anion Gap 6 (5-15); BUN 11 mg/dL (7-18); Calcium,Total 8.9 mg/dL (8.5-10.1); Chloride 106 mmol/L (98-107); Creatinine, Serum 0.58 mg/dL (0.55-1.02); EST Glomerular Filtration Rate 110 mL/min (>60); Est Glom Filt Rate - Afr Amer 133 mL/min (>60); Estimated Creatinine Clearance 70.39 ml/min; Globulin 3.9 g/dL (2.2-4.2); Glucose 177 mg/dL (74-106); Potassium 4.1 mmol/L (3.5-5.1); Protein, Total 6.9 g/dL (6.4-8.2); Sodium Level 136 mmol/L (136-145)
[2024-06-29 18:44] LABS: International Normalized Ratio 1.2; Prothrombin Time (Protime)PT. 15.8 SECONDS (11.7-14.9)
[2024-06-29 18:45] LABS: Partial Thromboplast Time 34.1 Seconds (24.1-36.2)
== END 2024-06-29 20:33 | disposition home or self-care (01) ==
PROVIDERS: Emergency Provider Emergency Medicine; PCP Preventive Medicine Occupational Medicine; Visit Provider Emergency Medicine
DX: M54.2 Cervicalgia (principal); L40.50 Arthropathic psoriasis, unspecified; J44.9 Chronic obstructive pulmonary disease, unspecified; E11.9 Type 2 diabetes mellitus without complications; R20.2 Paresthesia of skin; M54.50 Low back pain, unspecified; D69.6 Thrombocytopenia, unspecified; V49.40XA Driver injured in collision with unspecified motor vehicles in traffic accident, initial encounter; Y92.410 Unspecified street and highway as the place of occurrence of the external cause; M43.22 Fusion of spine, cervical region; M43.26 Fusion of spine, lumbar region; Z79.899 Other long term (current) drug therapy; Z87.891 Personal history of nicotine dependence
CPT/HCPCS: 70450; 71260; 72125; 74177; 80048; 80076; 85025; 85610; 85730; 93005; 99284; Q9967

== ENCOUNTER → 2024-07-15 | Outpatient (CLI) | payer MEDICARE, MEDICAID, SELFPAY ==
[2024-07-15 10:33] LABS: Absolute Lymphocyte Count 0.97 X10^3/uL (0.83-4.51); Absolute Neutrophil Count 4.8 X10^3/uL (2.0-7.7); Basophil# 0.04 X10^3/uL; Basophil% 0.6 % (0-1); Eosinophil# 0.09 X10^3/uL; Eosinophils% 1.4 % (0-5); Hematocrit 42.5 % (37-47); Hemoglobin 14.1 g/dL (12.0-15.0); Lymphocyte # 0.97 X10^3/ul (0.83-4.51); Mean Corp Hgb Conc 33.2 g/dL (32-36); Mean Corpuscular Hgb 34.8 pg (27.0-32.0); Mean Corpuscular Volume 104.9 fL (81-99); Mean Platelet Vol. 11.6 fl (6.2-12.0); Monocyte# 0.52 X10^3/uL; Monocyte% 8.1 % (0-10); NRBC Flagged by Analyzer 0 % (0-5); Neutrophil # 4.81 X10^3/uL (2.7-7.7); Neutrophil % 74.6 % (47-70); Platelet Count 86 K/mm3 (150-450); RBC Distribution Width CV 12.6 % (11.6-14.6); RBC Distribution Width SD 48.8 fl (35.1-43.9); Red Blood Count 4.05 M/mm3 (4.2-5.4); White Blood Count 6.5 K/mm3 (4.4-11.0)
[2024-07-15 10:52] LABS: Color, Urine Yellow (Yellow); Glucose, Dipstick Normal (Normal); Ketone-Dipstick Negative (Negative); Leukocyte Esterase-Dipstick Negative /ul (Negative); Nitrite-Dipstick Negative (Negative); Occult Blood-Urine Negative /ul (Negative); Protein-Dipstick Negative (Negative); Urine Bilirubin Dipstick Negative (Negative); Urine Clarity Clear (Clear); Urine Urobilinogen 1 mg/dl (Normal)
[2024-07-15 11:11] LABS: Vitamin B12 1637 pg/mL (211-911); Vitamin D,25 Hydroxy 21.4 ng/mL
[2024-07-15 11:50] LABS: AST(SGOT) 37 U/L (15-37); Alanine Aminotransfer ALT/SGPT 62 U/L (13-56); Alkaline Phosphatase 137 U/L (45-117); Amylase 21 U/L (25-115); Anion Gap 5 (5-15); BUN 16 mg/dL (7-18); Chloride 102 mmol/L (98-107); Cholesterol 166 mg/dL (200); Creatinine, Serum 0.62 mg/dL (0.55-1.02); EST Glomerular Filtration Rate 102 mL/min (>60); Est Glom Filt Rate - Afr Amer 123 mL/min (>60); Globulin 4.2 g/dL (2.2-4.2); Glucose 184 mg/dL (74-106); High Density Lipoprotein 107 mg/dL; Lipase < 10 U/L (13-75); Potassium 4.4 mmol/L (3.5-5.1); Protein, Total 7.2 g/dL (6.4-8.2); Sodium Level 136 mmol/L (136-145); Triglycerides 34 mg/dL; Very Low Density Lipoprotein 7 mg/dL (5-40)
[2024-07-15 12:47] LABS: Microalbumin,Random Urine < 5.0 mg/L (NO RANGE EST.)
[2024-07-15 13:28] LABS: Hemoglobin A1c 7.4 % (3.8-5.6)
== END | disposition home or self-care (01) ==
LOC: MTLAB 08:37
PROVIDERS: PCP Nurse Practitioner Family; Referring Provider Nurse Practitioner Family; Visit Provider Nurse Practitioner Family
DX: K74.60 Unspecified cirrhosis of liver (principal); E11.9 Type 2 diabetes mellitus without complications; E78.5 Hyperlipidemia, unspecified; E55.9 Vitamin D deficiency, unspecified; E53.8 Deficiency of other specified B group vitamins; I10 Essential (primary) hypertension
CPT/HCPCS: 36415; 80048; 80061; 80076; 81002; 82043; 82150; 82306; 82570; 82607; 83036; 83690; 84443; 85025

== ENCOUNTER → 2024-07-16 | Outpatient (CLI) | payer MEDICARE, MEDICAID, SELFPAY | END | disposition home or self-care (01) | LOC: MTLAB 10:57 | PROVIDERS: PCP Nurse Practitioner Family; Referring Provider Nurse Practitioner Family; Visit Provider Nurse Practitioner Family | DX: E78.5 Hyperlipidemia, unspecified (principal); K74.60 Unspecified cirrhosis of liver; E11.9 Type 2 diabetes mellitus without complications; E55.9 Vitamin D deficiency, unspecified; E53.8 Deficiency of other specified B group vitamins | CPT/HCPCS: 82746 ==

== ENCOUNTER 2024-09-13 10:32 | Outpatient (RCR) | payer MEDICARE, MEDICAID, SELFPAY ==
[2024-09-13 12:30] LABS: Anion Gap 11 (5-15); BUN 12 mg/dL (4-19); BUN/Creat Ratio 18.1 RATIO (10-20); Calcium,Total 8.9 mg/dL (7.6-11.0); Carbon Dioxide 20.2 mmol/L (21.0-32.0); Chloride 100 mmol/L (98-108); Creatinine, Serum 0.65 mg/dL (0.70-1.20); EST Glomerular Filtration Rate 95 (>60); Glucose 314 mg/dL (70-99); Potassium 4.7 mmol/L (3.3-5.1); Sodium Level 130 mmol/L (133-145)
== END 2024-09-13 18:00 | disposition home or self-care (01) ==
LOC: MTLAB 10:32
PROVIDERS: PCP Nurse Practitioner Family; Referring Provider Internal Medicine Gastroenterology; Visit Provider Internal Medicine Gastroenterology
DX: K74.60 Unspecified cirrhosis of liver (principal); Z79.899 Other long term (current) drug therapy
CPT/HCPCS: 36415; 80048

== ENCOUNTER 2024-10-28 12:58 | Outpatient (RCR) | payer MEDICARE, MEDICAID, SELFPAY ==
[2024-10-28 15:39] LABS: Anion Gap 11 (5-15); BUN 20 mg/dL (4-19); BUN/Creat Ratio 30.2 RATIO (10-20); Calcium,Total 9.1 mg/dL (7.6-11.0); Carbon Dioxide 22.2 mmol/L (21.0-32.0); Chloride 99 mmol/L (98-108); Creatinine, Serum 0.65 mg/dL (0.70-1.20); EST Glomerular Filtration Rate 95 (>60); Glucose 136 mg/dL (70-99); Potassium 4.4 mmol/L (3.3-5.1); Sodium Level 132 mmol/L (133-145)
== END 2024-10-28 18:00 | disposition home or self-care (01) ==
LOC: MTLAB 12:58
PROVIDERS: PCP Nurse Practitioner Family; Referring Provider Internal Medicine Gastroenterology; Visit Provider Internal Medicine Gastroenterology
DX: K74.60 Unspecified cirrhosis of liver (principal)
CPT/HCPCS: 36415; 80048

== ENCOUNTER 2024-12-01 09:48 | Outpatient (RCR) | payer MEDICARE, MEDICAID, SELFPAY ==
[2024-12-01 13:02] LABS: Anion Gap 11 (5-15); BUN 13 mg/dL (4-19); BUN/Creat Ratio 20.1 RATIO (10-20); Calcium,Total 8.8 mg/dL (7.6-11.0); Carbon Dioxide 21.3 mmol/L (21.0-32.0); Chloride 102 mmol/L (98-108); Creatinine, Serum 0.62 mg/dL (0.70-1.20); EST Glomerular Filtration Rate 96 (>60); Glucose 79 mg/dL (70-99); Potassium 4.2 mmol/L (3.3-5.1); Sodium Level 134 mmol/L (133-145)
== END 2024-12-01 18:00 | disposition home or self-care (01) ==
LOC: MTLAB 09:48
PROVIDERS: PCP Nurse Practitioner Family; Referring Provider Internal Medicine Gastroenterology; Visit Provider Internal Medicine Gastroenterology
DX: K74.60 Unspecified cirrhosis of liver (principal)
CPT/HCPCS: 36415; 80048

== ENCOUNTER 2025-01-19 10:19 | Outpatient (RCR) | payer MEDICARE, MEDICAID, SELFPAY ==
[2025-01-19 12:39] LABS: Hematocrit 39.4 % (37-47); Hemoglobin 13.4 g/dL (12.0-15.0); Mean Corp Hgb Conc 34.0 g/dL (32-36); Mean Corpuscular Volume 102.6 fL (81-99); Mean Platelet Vol. 11.7 fl (6.2-12.0); POSITIVE COUNT YES; Platelet Count 76 K/mm3 (150-450); RBC Distribution Width CV 12.5 % (11.6-14.6); RBC Distribution Width SD 47.2 fl (35.1-43.9); Red Blood Count 3.84 M/mm3 (4.2-5.4); White Blood Count 4.3 K/mm3 (4.4-11.0)
[2025-01-19 12:40] LABS: Prothrombin Time (Protime)PT. 15.2 SECONDS (11.7-14.9)
[2025-01-19 12:41] LABS: Partial Thromboplast Time 33.5 Seconds (24.1-36.2)
[2025-01-19 13:04] LABS: Anion Gap 10 (5-15); BUN 13 mg/dL (4-19); BUN/Creat Ratio 21.2 RATIO (10-20); Calcium,Total 9.0 mg/dL (7.6-11.0); Carbon Dioxide 22.4 mmol/L (21.0-32.0); Chloride 101 mmol/L (98-108); Glucose 214 mg/dL (70-99); Potassium 4.0 mmol/L (3.3-5.1)
== END 2025-01-19 18:00 | disposition home or self-care (01) ==
LOC: MTLAB 10:19
PROVIDERS: PCP Nurse Practitioner Family; Referring Provider Internal Medicine Gastroenterology; Visit Provider Internal Medicine Gastroenterology
DX: K74.60 Unspecified cirrhosis of liver (principal)
CPT/HCPCS: 36415; 80048; 82105; 85027; 85610; 85730

== ENCOUNTER → 2025-02-04 | Outpatient (CLI) | payer MEDICARE, MEDICAID, SELFPAY ==
--- NOTE | 2025-02-04 08:14 | CT_ITS ---
PROCEDURE: LOW DOSE CT LUNG SCREENING 02/04/2025 REASON FOR EXAM: NICOTINE DEPENDENCE Former smoker. Patient has smoked between 2 and 3 packs per day for 48 years. Shortness of breath. COPD. TECHNIQUE: LOW DOSE CT LUNG SCREENING Coronal and Sagittal reconstruction series were provided. One or more dose reduction techniques were used (e.g., Automated exposure control, adjustment of the mA and/or kV according to patient size, use of iterative reconstruction technique). REFERENCE LINK: [employer] Lung-RADS RADIATION DOSE SUMMARY: CTDlvol: 3.02 mGy DLP: 103.82 mGycm COMPARISON: Prior study dated June 29, 2024. FINDINGS: PULMONARY NODULES: (Only nodules >3mm are reported) Nodules described below are on series 1 unless otherwise specified. Pulmonary Nodules: No suspicious pulmonary nodules are seen. Hardware:None Lymph Nodes:No suspicious lymph nodes are seen. Heart and Vasculature:The heart is nonenlarged.No pericardial effusion. Coronary Artery Calcifications: Present Lungs and Airways: Mild emphysematous changes are present. No focal consolidation or mass lesion is seen. Pleura:No pleural effusion. Upper Abdomen:Multiple layering gallstones along the dependent portion of the gallbladder lumen. Splenomegaly. Bones:Degenerative changes of the thoracic spine. CT/Low Dose CT Lung Screening IMPRESSION: No suspicious pulmonary nodule seen. Coronary artery calcification (CAC) is is present Lung-RADS Category: 2 BENIGN (BASED ON IMAGING FEATURES OR INDOLENT BEHAVIOR). RECOMMEND 12-MONTH SCREENING LDCT. Other Significant Findings: Multiple gallstones. Splenomegaly. Reading Location: [facility]
== END | disposition home or self-care (01) ==
LOC: CT 08:14
PROVIDERS: PCP Nurse Practitioner Family; Referring Provider Internal Medicine Pulmonary Disease; Visit Provider Internal Medicine Pulmonary Disease
DX: Z87.891 Personal history of nicotine dependence (principal)
CPT/HCPCS: 71271

== ENCOUNTER → 2025-02-11 | Outpatient (CLI) | payer MEDICARE, MEDICAID, SELFPAY ==
--- NOTE | 2025-02-11 10:00 | US_ITS ---
PROCEDURE: ABDOMEN LIMITED 02/11/2025 REASON FOR EXAM: CIRRHOSIS TECHNIQUE: Procedure Code: USABDL Modality: US Procedure: ABDOMEN LIMITED COMPARISON: Prior study dated January 31, 2022. FINDINGS: Liver: Coarsened hepatic echotexture with a nodular liver contour suggestive of cirrhosis. Gallbladder: Multiple small gallstones. Common bile duct: Normal measuring 5.6 mm . Pancreas: Normal Other: Visualized portions of the right kidney are unremarkable. No right upper quadrant ascites. Minimal ascites in the right upper quadrant. US/Abdomen Limited IMPRESSION: Coarsened hepatic echotexture with a nodular liver contour suggestive of cirrho sis. Multiple gallstones. Minimal ascites in the right upper quadrant. Reading Location: [facility]
== END | disposition home or self-care (01) ==
LOC: US 09:57
PROVIDERS: PCP Nurse Practitioner Family; Referring Provider Internal Medicine Gastroenterology; Visit Provider Internal Medicine Gastroenterology
DX: K74.60 Unspecified cirrhosis of liver (principal)
CPT/HCPCS: 76705

== ENCOUNTER 2025-02-28 09:26 | Outpatient (RCR) | payer MEDICARE, MEDICAID, SELFPAY ==
[2025-02-28 13:06] LABS: Anion Gap 10 (5-15); BUN 18 mg/dL (4-19); BUN/Creat Ratio 26.1 RATIO (10-20); Calcium,Total 9.0 mg/dL (7.6-11.0); Carbon Dioxide 23.0 mmol/L (21.0-32.0); Chloride 102 mmol/L (98-108); Cholesterol 158 mg/dL (<=200); Glucose 194 mg/dL (70-99); Low Density Lipoprotein Calc. 61 mg/dL; Potassium 4.4 mmol/L (3.3-5.1); Triglycerides 30 mg/dL; Very Low Density Lipoprotein 6 mg/dL (5-40); cholesterol:hdl ratio screen 1.74
[2025-02-28 14:02] LABS: Creatinine, Urine (random) 46.30 mg/dL (28.00-217.00); Microalbumin,Random Urine < 12.0 mg/L (<20 mg/L)
== END 2025-03-15 18:00 | disposition home or self-care (01) ==
LOC: MTLAB 09:26
PROVIDERS: PCP Nurse Practitioner Family; Referring Provider Internal Medicine Gastroenterology; Visit Provider Internal Medicine Gastroenterology
DX: E11.9 Type 2 diabetes mellitus without complications; E78.5 Hyperlipidemia, unspecified
CPT/HCPCS: 36415; 80048; 80061; 82043; 82570; 84443

== ENCOUNTER 2025-04-18 09:23 | Outpatient (RCR) | payer MEDICARE, MEDICAID, SELFPAY ==
[2025-04-18 12:52] LABS: Anion Gap 8 (5-15); BUN 13 mg/dL (4-19); BUN/Creat Ratio 20.5 RATIO (10-20); Calcium,Total 9.0 mg/dL (7.6-11.0); Carbon Dioxide 25.1 mmol/L (21.0-32.0); Chloride 103 mmol/L (98-108); Glucose 174 mg/dL (70-99); Potassium 4.3 mmol/L (3.3-5.1)
== END 2025-05-14 18:00 | disposition home or self-care (01) ==
LOC: MTLAB 09:23
PROVIDERS: PCP Nurse Practitioner Family; Referring Provider Internal Medicine Gastroenterology; Visit Provider Internal Medicine Gastroenterology
DX: K74.60 Unspecified cirrhosis of liver (principal)
CPT/HCPCS: 36415; 80048

== ENCOUNTER → 2025-04-20 | Outpatient (CLI) | payer MEDICARE, MEDICAID, SELFPAY ==
--- NOTE | 2025-04-20 10:22 | RAD_ITS ---
PROCEDURE: RAD/Chest PA and Lateral
== END | disposition home or self-care (01) ==
LOC: MTRAD 10:20
PROVIDERS: PCP Nurse Practitioner Family; Referring Provider Family Medicine; Visit Provider Family Medicine
DX: R05.9 Cough, unspecified (principal)
CPT/HCPCS: 71046

== ENCOUNTER → 2025-04-22 | Outpatient (CLI) | payer MEDICARE, MEDICAID, SELFPAY ==
--- NOTE | 2025-04-22 10:30 | BI_ITS ---
EXAM: SCRN MAMM (CAD)W/ZAFAR BILAT DATE: 04/22/2025 CLINICAL HISTORY: F, Age 69 y/o , BILATERAL SCREENING MAMMO - SCREENING BREAST CANCER TECHNIQUE: Procedure Code: [id number] Modality: MG Procedure: SCRN MAMM (CAD)W/ZAFAR BILAT COMPARISON: Prior exam(s) dated 01/28/2024, 02/16/2020. FINDINGS: TISSUE DENSITY: There are scattered areas of fibroglandular density. Bilateral Breast Mammographic Findings: No significant masses, calcifications or other abnormalities are identified. BI/SCRN MAMM (CAD)W/ZAFAR BILAT IMPRESSION: There is no mammographic evidence of malignancy. OVERALL FINAL ASSESSMENT BI-RADS 1: NEGATIVE. RECOMMENDATION: Routine annual follow-up in 1 Year Additional Recommendation none A letter with findings and recommendations will be mailed to the patient. Reading Location: [id number]
== END | disposition home or self-care (01) ==
LOC: OPBI 10:24
PROVIDERS: PCP Nurse Practitioner Family; Referring Provider Nurse Practitioner Family; Visit Provider Nurse Practitioner Family
DX: Z12.31 Encounter for screening mammogram for malignant neoplasm of breast (principal)
CPT/HCPCS: 77063; 77067